=== PATIENT | male | born 1980 ===

== ENCOUNTER 2018-10-17 13:16 | Emergency (ER) | payer OTHER ==
[2018-10-17] MEDS ORDERED: Hydrogen Peroxide 237 ML SOL TP ONE (13:54)
[2018-10-17] MEDS ORDERED: Tdap Vaccine 0.5 ml Vial (10-64 yrs) IM ONE ×2 (14:00→14:15)
[2018-10-17] MEDS ORDERED: Hydrogen Peroxide 3% Soln (480ml) TP ONE (14:15)
--- NOTE | 2018-10-17 14:48 | CT ---
Date of service: 10/17/2018 PROCEDURE: CT MAXILLOFACIAL BONES WITHOUT CONTRAST HISTORY: fall with facial trauma. eval for orbit fx COMPARISON: None available. TECHNIQUE: Contiguous axial CT images of the maxillofacial bones were obtained. Coronal and sagittal reformats were generated. Radiation dose: Total exam DLP = 836.12 mGy-cm. This CT exam was performed using one or more of the following dose reduction techniques: Automated exposure control, adjustment of the mA and/or kV according to patient size, and/or use of iterative reconstruction technique. FINDINGS: NASAL BONES: No fracture identified however mild left paranasal soft tissue edema is identified related to prominent left periorbital soft tissue edema/hematoma. ORBITS: No fracture of either orbit. There is prominent left preseptal periorbital edema and moderate underlying hematoma diffusely surrounding the left orbit and extending into the left temporal and maxilla soft tissues moderately. No definite retained radiodense foreign body is identified. There is mild medial paranasal soft tissue edema identified at the left as well. There are no postseptal orbital findings bilaterally. PARANASAL SINUSES/ MASTOIDS: Limited left maxillary sinus mucosal inflammatory changes with remaining sinuses clear. MAXILLA: No fracture or destructive bony lesion identified throughout the maxilla. MANDIBLE/ TEMPOROMANDIBULAR JOINTS: Unremarkable. SKULL BASE: Unremarkable. TEMPORAL BONES: Middle ears and mastoid grossly unremarkable. OTHER FINDINGS: None. IMPRESSION: No fracture identified throughout this exam including the left orbit and left maxilla. Extensive left periorbital soft tissue edema is appreciated diffusely with [id number] hematoma. This posttraumatic cellulitis/hematoma pattern extends inferolaterally into the left temporal and maxilla soft tissues. No postseptal orbital pathological findings appreciated on acute basis.
[2018-10-17] MEDS ORDERED: Tetracaine 0.5% Ophth 2 ML BOTTLE OS STA (14:58)
[2018-10-17] MEDS ORDERED: Fluorescein 1 mg Ophthalmic Strip OS STA (14:58)
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
[2018-10-17] MEDS ORDERED: Fluorescein 1 mg Ophthalmic Strip ONE (15:09)
[2018-10-17] MEDS ORDERED: Tetracaine 0.5% Ophth 2 ML BOTTLE ONE (15:10)
[2018-10-17 16:16] VITALS: BP 122/78; PULSE 78; RESP 18; TEMP 98
[2018-10-17 17:05] VITALS: O2SAT 99
== END 2018-10-17 16:15 | disposition home or self-care (01) ==
LOC: H.ER 13:16
DX: S00.81XA Abrasion of other part of head, initial encounter (principal); S00.12XA Contusion of left eyelid and periocular area, initial encounter; S09.93XA Unspecified injury of face, initial encounter; W19.XXXA Unspecified fall, initial encounter; Y92.480 Sidewalk as the place of occurrence of the external cause
CPT/HCPCS: 70486; 90471; 90715; 96372; 99282; J1885